=== PATIENT | male | born 1975 | race Caucasian/White ===

== ENCOUNTER 2018-05-10 13:45 | Emergency (ER) | payer SELFPAY ==
[2018-05-10 14:05] VITALS: BP 129/92
--- NOTE | 2018-05-10 14:50 | XRAY Report ---
Reason: chest pain Procedure Date: 05/10/2018 Accession Number: [id number] / [id number] Procedure: XR - Chest 2 View X-Ray CPT Code: 62180 FULL RESULT: EXAM: CHEST RADIOGRAPHY EXAM DATE: 05/10/2018 02:39 PM. CLINICAL HISTORY: Chest pain radiating down left arm for approximately 36 hours COMPARISON: None. TECHNIQUE: 2 views. FINDINGS: Lungs/Pleura: No focal opacities evident. No pleural effusion. No pneumothorax. Pulmonary vasculature is within normal limits Normal volumes. Mediastinum: Heart and mediastinal contours are unremarkable. Other: None. IMPRESSION: Normal 2-view chest radiography. [facility]
[2018-05-10 15:21] LABS: BASOPHILS # (AUTO) 0.1 10^3/uL (0.0-0.1); BASOPHILS % (AUTO) 1.3 %; EOSINOPHILS # (AUTO) 0.1 10^3/uL (0.0-0.7); EOSINOPHILS % (AUTO) 1.6 %; HGB - HEMOGLOBIN 14.6 g/dL (14.0-18.0); LYMPHOCYTES # (AUTO) 2.2 10^3/uL (1.5-3.5); LYMPHOCYTES % (AUTO) 33.7 %; MEAN CORPUSCULAR HEMOGLOBIN 32.5 pg (27.0-31.0); MEAN CORPUSCULAR HGB CONC 35.2 g/dL (32.0-36.0); MEAN CORPUSCULAR VOLUME 92.5 fL (80.0-94.0); MEAN PLATELET VOLUME 9.3 fL (7.4-11.4); MONOCYTES # (AUTO) 0.5 10^3/uL (0.0-1.0); MONOCYTES % (AUTO) 7.8 %; NEUTROPHILS # (AUTO) 3.7 10^3/uL (1.5-6.6); NEUTROPHILS % (AUTO) 55.6 %; PLT - PLATELET COUNT 224 10^3/uL (130-450); RED CELL DISTRIBUTION WIDTH 12.3 % (12.0-15.0); WHITE BLOOD COUNT 6.6 x10^3/uL (4.8-10.8)
[2018-05-10 15:39] LABS: ALBUMIN 4.4 g/dL (3.2-5.5); ALBUMIN/GLOBULIN RATIO 1.5 (1.0-2.2); BILIRUBIN,TOTAL 0.7 mg/dL (0.2-1.0); CALCIUM 9.3 mg/dL (8.5-10.3); CREATININE 1.3 mg/dL (0.6-1.2); TOTAL PROTEIN 7.4 g/dL (6.7-8.2)
--- NOTE | 2018-05-10 15:57 | ED Physician Documentation ---
PD HPI UPPER EXT INJURY - Stated complaint Stated Complaint: CHEST PX,L HAND DULL THROBBING - Chief complaint Chief Complaint: General - History obtained from History obtained from: Patient - History of Present Illness Location: Left, Shoulder Type of injury: No: Fall, Twist Timing - onset: How many days ago (2) Timing - duration: Days (2) Timing - details: Gradual onset, Still present, Waxing and waning Improved by: Rest Worsened by: Moving, Other (he has aching feeling anterior left shoulder associated with numb/aching in left hand/palm. Notes it more when arm is down by his side. He says it feels better when he is holding arm up, with shoulder at 90 degrees, then it doesn't hurt and palm numbness improves. No change with breathing, walking, running. He does work out whole body including weight, regularly.). No: Palpating Associated symptoms: Numbness (in palm area with arm to side.). No: Weakness, Swelling, Discolored Similar symptoms before: Has not had sx before Recently seen: Not recently seen Review of Systems Constitutional: denies: Fever, Chills Nose: denies: Rhinorrhea / runny nose, Congestion Throat: denies: Sore throat Cardiac: denies: Chest pain / pressure, Palpitations Respiratory: denies: Dyspnea, Cough GI: denies: Nausea, Vomiting Skin: denies: Rash, Lesions PD PAST MEDICAL HISTORY - Past Medical History Cardiovascular: None Respiratory: None Neuro: None Endocrine/Autoimmune: None - Present Medications Home Medications: Ambulatory Orders Medication Instructions Recorded Confirmed No Known Home Medications [No 05/10/18 05/10/18 Known Home Medications] - Allergies Allergies/Adverse Reactions: Allergies Allergy/AdvReac Type Severity Reaction Status Date / Time No Known Drug Allergies Allergy Verified 05/10/18 14:03 - Living Situation Living Situation: reports: Other ([place] out of state and is here at [facility] for 10 day assignment. ) - Social History Does the pt smoke?: No Does the pt have substance abuse?: No - Family History Family history: denies: CAD PD ED PE NORMAL - Vitals Vital signs reviewed: Yes - General General: Alert and oriented X 3, Well developed/nourished - Neck Neck: Supple, no meningeal sign, No bony TTP, No adenopathy - Cardiac Cardiac: RRR, No murmur - Respiratory Respiratory: Clear bilaterally - Derm Derm: Normal color, Warm and dry - Extremities Extremities: Other (good pulses in wrist with arm up and down. 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 Left shoulder without tenderness per se. Good ROM, with some pain on held abduction and extension against resistance. Consider some joint process such as rotator cuff tendonitis or labral tear or such.) - Neuro Neuro: Alert and oriented X 3, No motor deficit, No sensory deficit, Normal speech Results - Vitals Vitals: Oxygen O2 Source Room air - EKG (time done) 13:55 Rate: Rate (enter#) (56) Rhythm: NSR [place]: Normal Intervals: Normal [place] QRS: Normal Ischemia: Normal ST segments. No: ST elevation c/w ischemia, ST depression Compare to prior EKG: Old EKG unavailable - Labs Labs: Laboratory Tests 05/10/18 05/10/18 05/10/18 15:16 15:16 15:16 WBC 6.6 RBC 4.50 L Hgb 14.6 Hct 41.6 L MCV 92.5 MCH 32.5 H MCHC 35.2 RDW 12.3 Plt Count 224 MPV 9.3 Neut # (Auto) 3.7 Lymph # (Auto) 2.2 [place] # (Auto) 0.5 Eos # (Auto) 0.1 Baso # (Auto) 0.1 Absolute Nucleated RBC 0.00 Nucleated RBC % 0.0 Sodium 139 Potassium 3.7 Chloride 101 Carbon Dioxide 28 Anion Gap 10.0 BUN 17 Creatinine 1.3 H Estimated GFR (MDRD) 61 L Glucose 94 Calcium 9.3 Total Bilirubin 0.7 AST 20 ALT 16 Alkaline Phosphatase 52 Troponin I < 0.04 Total Protein 7.4 Albumin 4.4 Globulin 3.0 Albumin/Globulin Ratio 1.5 Lipase 41 - Rads (name of study) chest ray Radiology: Prelim report reviewed (normal) PD MEDICAL DECISION MAKING - ED course Complexity details: reviewed results (ECG and CXR and labs are normal. Got into chest pain pathway through triage. ), considered differential (has good pulse with arm down and up. Usually vascular impingement is worse with arm up. He has tingling feeling with arm down. No neck pain. Seems like shoulder process. ), d/ w patient - Sepsis Event Vital Signs: Oxygen O2 Source Room air Departure - Departure Disposition: 01 Home, Self Care Clinical Impression: Shoulder pain, acute Qualifiers: Laterality: left Qualified Code(s): M25.512 - Pain in left shoulder Shoulder impingement Qualifiers: Laterality: left Qualified Code(s): M75.42 - Impingement syndrome of left shoulder Condition: Stable Record reviewed to determine appropriate education?: Yes Discharge Date/Time: 05/10/18 16:23
[2018-05-10] MEDS ORDERED: IBUPROFEN 600 MG TABLET PO STA (15:58)
[2018-05-10] MEDS ORDERED: DEXAMETHASONE 10 MG/ML VIAL PO STA (15:58)
[2018-05-10] MEDS ORDERED: CHERRY SYRUP 10 ML UDC PO ONE (16:10)
== END 2018-05-10 16:23 | disposition home or self-care (01) ==
LOC: ED 13:45
DX: M25.512 Pain in left shoulder (principal); M75.42 Impingement syndrome of left shoulder
CPT/HCPCS: 36415; 71046; 80053; 83690; 84484; 85025; 93005; 99282; 99283